=== PATIENT | male | born 2000 | race African-American/Black ===

== ENCOUNTER 2021-12-23 15:05 | Emergency (ER) | payer SELFPAY ==
[~2021-12-23] VITALS: Ht 188 cm; Wt 79.4 kg
--- NOTE | 2021-12-23 16:45 | NUR ---
Gave pt d/c instructions, pt verbalized understanding.
== END 2021-12-23 16:47 | disposition home or self-care (01) ==
LOC: ER 15:05
DX: S92.355A Nondisplaced fracture of fifth metatarsal bone, left foot, initial encounter for closed fracture (principal); X50.1XXA Overexertion from prolonged static or awkward postures, initial encounter; Y93.67 Activity, basketball; Y92.89 Other specified places as the place of occurrence of the external cause
CPT/HCPCS: 73630; A4663